=== PATIENT | male | born 1990 | race Caucasian/White ===

== ENCOUNTER 2020-12-27 16:36 | Emergency (ER) | payer MEDICARE, MEDICAID, SELFPAY ==
[2020-12-27 16:42] VITALS: BP 130/92; PULSE 89; RESP 20; TEMP 37.7; O2SAT 99
[2020-12-27] MEDS: Clindamycin 150 MG CAP 450 MG PO (17:19)
--- NOTE | 2020-12-27 17:44 | ED.GENADUL_ITS ---
Discharge Plan Disposition Patient Disposition: HOME Condition: Stable Discharge Details Clinical Impression: Erysipelas Primary Care Provider: Iban Jaimes ED Provider: Kaylah Fofana Home Meds and New Rx's Prescriptions: New clindamycin HCl 150 mg capsule 450 mg PO TID Qty: 63 RF: 0 Continued testosterone cypionate 200 mg/mL oil 200 mg IM Q2W Qty: 10 RF: 0 Discharge Instructions Instructions: Clindamycin (By mouth), Cellulitis (ED) Additional Instructions: It is very important that your infection is reevaluated in 48 hours. Please return to the emergency department in 48 hours so that we may recheck your infection. Please return immediately to the emergency department if you develop any new or worsening symptoms, if your condition does not improve as expected, or if you become otherwise concerned. It is extremely important that you call soon as possible to make an appointment to be seen in follow-up for this visit by your primary care doctor. 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 No trauma or known inciting event. On exam patient is very well and nontoxic-appearing. There is a well-d emarcated 8 x 10 cm area of erythema with raised edges to the left anterior thigh, area is warm to the touch, mildly tender to palpation, no crepitus, no fluctuance. Positive induration. Skin changes do not extend over joint. Full painless range of motion of the left hip and left knee. No posterior calf tenderness to palpation or lower extremity edema. Concern for erysipelas. Bedside ultrasound shows soft tissue edema without fluid collection, there is no abscess. Exam/history at this time is not consistent with necrotizing fasciitis, sepsis, septic arthritis, osteomyelitis, DVT. Plan for clindamycin, return here to the emergency department in 48 hours for recheck, or immediately return to emergency department for worsening symptoms. I had a lengthy discussion with Patient regarding return to emergency department precautions, home care, and importance of outpatient follow-up. Pt verbalizes understanding of the plan and is amenable. Patient discharged to home with clear plan for outpatient follow-up. All questions were answered. Disposition decision was made weighing the risks and benefits of hospitalization versus outpatient treatment, the risk for further decompensation, and the patient's wishes. Medical Records Medical records reviewed: Yes I reviewed the patient's medical records. HPI General Mode of arrival: ambulatory . Date/Time Provider Initiated Documentation: 12/27/20 16:45 . Limitations to Documentation: no limitations . Information obtained by: patient, RN notes reviewed and old records reviewed . HPI Narrative: Jamey Beaver is a 30-year-old man with a history of Klinefelter's syndrome taking testosterone presenting to emergency department with chief complaint rash to left thigh. Patient reports that 3 days ago while showering he noticed painful red rash to his left anterior thigh. Patient reports that rash has been unchanged since onset, not increasing or decreasing in size or severity of pain. He denies any other rash, any other pain, fever, vomiting, shortness of breath, cough, numbness, weakness. He denies any trauma to the area or known inciting event. Has been eating and drinking as usual. Patient reports that he has not had a skin infection in several years. He reports that he was recently on Augmentin for an ear infection which he finished a few days ago. Has been eating and drinking as usual, no appetite changes. Has been walking without issue. Receives testosterone injections from his PCP into the upper arm periodically. Related Data Home Medications Medication Instructions Recorded Confirmed testosterone cypionate 200 mg/mL 200 mg IM Q2W #10 ml 11/27/20 12/27/20 intramuscular oil clindamycin HCl 450 mg PO TID #63 cap 12/27/20 Previous Rx's Medication Instructions Recorded testosterone cypionate 200 mg/mL 200 mg IM Q2W #10 ml 11/27/20 intramuscular oil clindamycin HCl 450 mg PO TID #63 cap 12/27/20 Allergies Allergy/AdvReac Type Severity Reaction Status Date / Time ibuprofen Allergy Severe Hives Verified 12/27/20 16:44 tramadol Allergy Severe Verified 12/27/20 16:44 Flu Shot AdvReac Unknown Uncoded 12/27/20 16:44 General Stated Complaint: Cellulitis TOM: 3 Review of Systems Narrative: Constitutional: denies fevers Eyes: denies eye pain ENT: denies ear pain, dental pain, sore throat Cardiovascular: denies chest pain, edema Respiratory: denies SOB, cough GI: denies abdominal pain, vomiting, diarrhea : denies flank pain MSK: denies back pain, neck pain, arthralgias, myalgias Skin: Reports rash left thigh as per HPI Neuro: denies headaches, numbness, weakness PFSH Medical History (Updated 12/27/20 @ 17:14 by Kaylah Fofana MD) 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 Surgical History (Updated 11/02/20 @ 13:25 by Lupe Celis) H/O myringotomy x2 H/O surgical procedure adenoids Family History (Updated 10/09/20 @ 14:13 by Janee Nguyen) Mother , 41 Heart disease Diabetes Father Alcohol abuse Sister No problems noted. Social History Smoking/Tobacco Use Status: Current every day Tobacco Type: cigarettes Quit status: not considering quitting Second Hand Exposure: Yes Smoking risk assessment performed?: Yes Alcohol Intake: current Alcohol Intake frequency: a few times a week Alcohol type: beer Drug use: Daily Substance use type: marijuana Caregiver/Support person: No Household members: family Housing: house Communication Needs: None Do you need help understanding health information?: Always Pets and animals: No Sexually active: Yes Do you think of yourself as: straight/heterosexual Current gender identity: male What is your relationship status?: never How often do you talk on the phone with friends or family?: three or more times per week How often do you get together with friends or relatives?: once per week How often do you attend taoist or yazdanism services?: decline to answer Do you belong to any clubs or organized social groups?: no Panel score (0-1 are the most socially isolated patients): 1 What type of physical activity do you participate in: none Dimple/Yarsanism: No preference Seatbelt use: sometimes Helmet use: Yes Helmet use: sometimes Drive intox or ride w/intox driver trainer: No Do you feel safe at home: Yes Do you feel safe in your relationship?: Yes Exam Narrative Exam Narrative: Constitutional: well and [id number], pleasant, conversing normally HENT: head atraumatic/normocephalic/normal inspection, mucous membranes moist Eyes: conjunctiva normal, sclera normal, pupils 3mm b/l Neck: no stridor, normal ROM, trachea midline Resp: normal work of breathing, speaking in full sentences Cardio: normal rate, normal rhythm Skin: warm, dry, normal color, no rash Neuro: alert, not altered, grossly non-focal, normal tone Ext: 10 x 8 cm well demarcated erythema with raised borders to the left anterior thigh, mildly tender to palpation, positive induration, no fluctuance, no crepitus, no streaking. There is no lower extremity edema, no posterior calf tenderness to palpation, PT and DP pulses intact and symmetric. Psych: normal mood, normal affect, normal behavior Course Vital Signs Vital signs: Vital Signs Temperature 37.7 C H 12/27/20 16:42 Pulse 89 12/27/20 16:42 Respiratory Rate 20 12/27/20 16:42 Blood Pressure 130/92 H 12/27/20 16:42 Pulse Oximetry 99 12/27/20 16:42 Temperature 37.7 C H 12/27/20 16:42 Temperature Source Tympanic 12/27/20 16:42 Pulse 89 12/27/20 16:42 Respiratory Rate 20 12/27/20 16:42 Respiratory Effort Non-Labored 12/27/20 16:45 Blood Pressure 130/92 H 12/27/20 16:42 Blood Pressure Position Sitting 12/27/20 16:42 Pulse Oximetry 99 12/27/20 16:42 Oxygen Delivery Method Room Air 12/27/20 16:42 Oxygen Flow Rate 0 12/27/20 16:42 Pain Level 8 12/27/20 16:42
== END 2020-12-27 17:21 | disposition home or self-care (01) ==
PROVIDERS: Emergency Provider Student in an Organized Health Care Education/Training Program; PCP Nurse Practitioner Family
DX: A46 Erysipelas (principal)
CPT/HCPCS: 99283

== ENCOUNTER 2021-02-21 01:49 | Outpatient (CLI) | payer MEDICARE, MEDICAID, SELFPAY ==
[2021-02-21 12:57] LABS: ALT 88 U/L (16-63); AST 44 U/L (15-37); Albumin 4.2 g/dL (3.4-5.0); Alkaline Phosphatase 101 U/L (46-116); Anion Gap 11.9 mmol/L (3-11); BUN 8 mg/dL (7-18); Bilirubin, Total 0.8 mg/dL (0.2-1.0); CO2 25.1 mmol/L (21.0-32.0); CREATININE 1.1 mg/dL (0.70-1.30); Calcium 9.4 mg/dL (8.5-10.1); Calculated LDL 117 mg/dL (<100); Chloride 103 mmol/L (98-107); Cholesterol 204 mg/dL (<200); Glucose 99 mg/dL (74-106); HDL Cholesterol 32 mg/dL (40-60); Potassium 4.3 mmol/L (3.5-5.1); Sodium 140 mmol/L (136-145); Total Protein 7.7 g/dL (6.4-8.2); Triglyceride 275 mg/dL (<150)
[2021-02-21 12:58] LABS: Hemoglobin A1C 5.5 % (<5.7)
[2021-02-25 02:02] LABS: Testosterone, Total 1930 ng/dL (240-950)
== END 2021-02-21 01:50 | disposition home or self-care (01) ==
LOC: LOS 01:49
PROVIDERS: PCP Nurse Practitioner Family; Referring Provider Nurse Practitioner Family; Visit Provider Nurse Practitioner Family
DX: E78.5 Hyperlipidemia, unspecified (principal); R59.1 Generalized enlarged lymph nodes; R79.89 Other specified abnormal findings of blood chemistry; Q98.4 Klinefelter syndrome, unspecified
CPT/HCPCS: 36415; 80053; 80061; 84403; 83036

== ENCOUNTER 2021-05-20 09:00 | Outpatient (CLI) | payer MEDICARE, MEDICAID, SELFPAY ==
[2021-05-20 12:49] LABS: HCT 47.4 % (40.0-50.0); HGB 15.3 g/dL (13.5-17.5); MCH 30.5 pg (27.0-33.0); MCHC 32.3 % (32.0-36.0); MCV 94.6 fL (80-95); MPV 10.2 fL (8.0-11.0); Platelet Count 306 10^3/uL (130-400); RBC 5.01 10^6/uL (4.36-5.78); RDW 14.2 % (11.8-14.1); RDW-SD 49.5 fL; WBC 7.93 10^3/uL (4.4-10.8)
[2021-05-20 13:01] LABS: ALT 51 U/L (16-63); AST 22 U/L (15-37); Albumin 4.1 g/dL (3.4-5.0); Alkaline Phosphatase 76 U/L (46-116); Anion Gap 8.7 mmol/L (3-11); BUN 14 mg/dL (7-18); Bilirubin, Total 1.1 mg/dL (0.2-1.0); CO2 27.3 mmol/L (21.0-32.0); CREATININE 0.9 mg/dL (0.70-1.30); Calcium 9.5 mg/dL (8.5-10.1); Chloride 106 mmol/L (98-107); Glucose 91 mg/dL (74-106); Potassium 4.4 mmol/L (3.5-5.1); Sodium 142 mmol/L (136-145); Total Protein 7.5 g/dL (6.4-8.2)
[2021-05-23 11:58] LABS: Testosterone, Total 242 ng/dL (240-950)
== END 2021-05-20 09:01 | disposition home or self-care (01) ==
LOC: LOS 09:00
PROVIDERS: Family Medicine; PCP Nurse Practitioner Family; Referring Provider Nurse Practitioner Family; Visit Provider Nurse Practitioner Family
DX: E78.5 Hyperlipidemia, unspecified; E29.1 Testicular hypofunction; Q98.4 Klinefelter syndrome, unspecified
CPT/HCPCS: 80053; 84403; 85027

== ENCOUNTER 2021-10-10 02:05 | Outpatient (CLI) | payer MEDICARE, MEDICAID, SELFPAY | END 2021-10-10 02:06 | disposition home or self-care (01) | LOC: LBO 02:05 | PROVIDERS: PCP Nurse Practitioner Family; Visit Provider Nurse Practitioner Family ==

== ENCOUNTER 2022-05-01 16:26 | Outpatient (REF) | payer MEDICARE, MEDICAID, SELFPAY ==
[2022-05-08 16:12] LABS: Testosterone, Total 1480 ng/dL (240-950)
== END 2022-05-01 16:27 | disposition home or self-care (01) ==
LOC: NCHCN 16:26
PROVIDERS: Visit Provider Physician Assistant
DX: Q98.4 Klinefelter syndrome, unspecified (principal); E29.1 Testicular hypofunction
CPT/HCPCS: 84403

== ENCOUNTER 2022-08-14 09:45 | Outpatient (CLI) | payer MEDICARE, MEDICAID, SELFPAY ==
--- NOTE | 2022-08-14 09:00 | DI.RAD_ITS ---
Exam(s) XR FINGER LT LITTLE EXAM: XR FINGER LT LITTLE CLINICAL HISTORY: LLF pain. TECHNIQUE: 2D digital imaging was performed. Three views. COMPARISON: None. FINDINGS: BONES: No acute fracture is present. No bony destructive lesion is seen. JOINTS: No dislocation present. Mild flexion deformity at the distal interphalangeal joint. No bony erosions. No significant degenerative changes. SOFT TISSUE: Normal. IMPRESSION: Flexion deformity distal interphalangeal joint. DATA REPOSITORY: RADIATION DOSE DELIVERED:
== END 2022-08-14 09:46 | disposition home or self-care (01) ==
LOC: DIORS 09:45
PROVIDERS: PCP Physician Assistant; Referring Provider Physician Assistant; Visit Provider Student in an Organized Health Care Education/Training Program
DX: M65.352 Trigger finger, left little finger (principal)
CPT/HCPCS: 99213; 73140

== ENCOUNTER 2022-10-28 14:27 | Outpatient (REF) | payer MEDICARE, MEDICAID, SELFPAY ==
[2022-10-31 16:14] LABS: Testosterone, Total 129 ng/dL (240-950)
== END 2022-10-28 14:28 | disposition home or self-care (01) ==
LOC: NCHCN 14:27
PROVIDERS: PCP Physician Assistant; Visit Provider Physician Assistant
DX: E29.1 Testicular hypofunction
CPT/HCPCS: 84403

== ENCOUNTER 2023-11-04 13:59 | Outpatient (REF) | payer MEDICARE, MEDICAID, SELFPAY ==
[2023-11-04 16:04] LABS: MCH 32.3 pg (27.0-33.0); MCV 95 fL (80-95); MPV 10.8 fL (8.0-11.0); Platelet Count 328 10^3/uL (130-400); RBC 4.96 10^6/uL (4.36-5.78); RDW-SD 49.1 fL; WBC 7.12 10^3/uL (4.4-10.8)
[2023-11-09 11:31] LABS: Testosterone, Total 176 ng/dL (240-950)
== END 2023-11-04 14:00 | disposition home or self-care (01) ==
LOC: NCHCN 13:59
PROVIDERS: PCP Physician Assistant; Visit Provider Physician Assistant
DX: Q98.4 Klinefelter syndrome, unspecified (principal)
CPT/HCPCS: 84403; 85027